=== PATIENT | female | born 1985 | race Caucasian/White ===

== ENCOUNTER 2017-03-01 08:05 | Inpatient (IN) | payer OTHER ==
[2017-03-01 09:33] LABS: BASOPHIL 0.7 % (0-2.0); EOSINOPHIL 1.3 % (0-4.5); MCH 31.1 pg (25.7-33.7); MCHC 33.2 g/dl (32.0-36.0); MEAN CELL VOLUME 93.4 fl (80-96); NEUTROPHILS 68.2 % (42.8-82.8); PLATELET COUNT 165 K/MM3 (134-434); WHITE BLOOD COUNT 13.3 K/mm3 (4.0-10.0)
[2017-03-01 09:46] LABS: INR 0.86 (0.82-1.09); PROTHROMBIN TIME (PATIENT) 9.4 SEC (9.98-11.88)
[2017-03-01 09:48] LABS: ACTIVATED PTT 28.7 SECONDS (26.9-34.4)
[2017-03-01 09:54] LABS: ALBUMIN 2.5 g/dl (3.4-5.0); ALK PHOS 167 U/L (45-117); ANION GAP 11 (8-16); BILIRUBIN,TOTAL 0.3 mg/dL (0.2-1.0); CALCIUM 8.8 mg/dL (8.5-10.1); CO2 22 mmol/L (21-32); CREATININE 0.4 mg/dL (0.55-1.02); GLUCOSE,RANDOM 72 mg/dL (74-106); SGOT/AST 15 U/L (15-37); SGPT/ALT 18 U/L (12-78); TOT PROT 6.4 g/dl (6.4-8.2)
[2017-03-01] MEDS ORDERED: ELECTROLYTE-148 SOLN 500 ML IV ONE ×2 (10:00→10:28)
[2017-03-01] MEDS ORDERED: CITRIC ACID/SODIUM CITRATE 30 ML UNIT-DOSE CUP PO ONE ×2 (11:39)
[2017-03-01 11:45] VITALS: BMI 29.4
[2017-03-01] MEDS ORDERED: ELECTROLYTE-148 SOLN 1,000 ML IV SCH ×2 (11:45→12:15)
[2017-03-01 12:13] LABS: CREATININE 0.4 mg/dL (0.55-1.02); URINE CREATININE 89.8 mg/dL (20-320)
[2017-03-01 13:33] LABS: ARTERIAL BLD GAS O2 SATURATION 10.2 % (90-98.9); ARTERIAL BLOOD GAS HCO3 27.7 meq/L (22-26); ARTERIAL BLOOD GAS PO2 10.5 mmHg (80-100)
[2017-03-01 13:35] LABS: ARTERIAL BLOOD GAS pH 7.27 (7.35-7.45)
[2017-03-01] MEDS ORDERED: IBUPROFEN 800 MG/8 ML IJ IVPB PRN (13:49)
[2017-03-01] MEDS ORDERED: METHYLERGONOVINE MALEATE 0.2 MG/1 ML AMP IM PRN (13:49)
[2017-03-01] MEDS ORDERED: OXYTOCIN 20 UNITS in 0.9% NS 1,000 ML IV SCH (14:00)
--- NOTE | 2017-03-01 14:02 | OP ---
Operative Note - Note: Operative Date: 03/01/17 Pre-Operative Diagnosis: 37 weeks , previous c/sctionx2, Non Reassuring FHR , abnormal dopplers , severe proteinuria Operation: Repeat LFTC/section Findings: 12.53 pm, baby boy, LOP, cord around body, 9/9, WT 4'15" , Ht 17" meconium stained amniotic fluid both tubes & ovaries normal Dr alberto Infection Prevention Practitioner present in the room Surgeon: Cierra Wagner Assistant Business Manager: Ledy Burciaga Anesthesiologist/STREAMING MEDIA SPECIALIST: Gallito Kim Anesthesia: Spinal Specimens Removed: cord segment for cord gas. cord blood. placenta Estimated Blood Loss (mls): 700 Drains, Volume Out (mls): 300 (tawanna color , ulloa out put ) Fluid Volume Replaced (mls): 1,700 (Iv Ancef prior to incision was given ) Operative Report Dictated: Yes
--- NOTE | 2017-03-01 14:17 | PN ---
Delivery - Delivery Section: Repeat, Low Flap Transverse (indication : 37 wks, Non reassuring FHr, , 2previous c/section , abn doppler study) Type of Anesthesia: Spinal EBL (cc): 700 (ulloa out put 300 ml tawanna color ) Delivery, Single - Stages of Labor Date of Delivery: 03/01/17 Time of Delivery: 12:53 Date Placenta Delivered: 03/01/17 Time Placenta Delivered: 12:55 Placenta: Yes: Manual Removal, Uterine Exploration - Condition of Intelligence Officer/Small Kick Press Operator Present: Yes Name: Yani Kinsey Infant Gender: Male Position: Left, OP (cord around body) Total Hours ROM (Hrs/Mins): 2 min mecnium light - 1 Minute Total Score: 9 5 Minutes Total Score: 9 - [place] Feeding Plan Initial Plan: Elected not to breastfeed exclusively throughout hospitalization Remarks - Remarks Remarks: 31 yrs , 37 weeks, previous c/sx2, Non reassuring FHR, abnormal uterine artery & middle cerebra artery doppllers , severe proteinuria , decrease FM Pt was recommended delivery . Gbs neg . PNC at [address] [place] [address]
--- NOTE | 2017-03-01 15:06 | OP ---
DATE OF OPERATION: 03/01/2017 PREOPERATIVE DIAGNOSIS: 37 weeks , previous section x2, nonreassuring heart rate, abnormal umbilical and mid-cerebral artery Dopplers, and severe proteinuria. SURGEON: Cierra Wagner MD FURNITURE SANDER SURGEON: Ledy Burciaga DO ANESTHESIOLOGIST: Gallito Kim MD ANESTHESIA: Spinal. FINDINGS: This is a 31-year-old, 5, para 2-0-2-2, who is 37 weeks gestation, had previous C-sections x2, has a history of decreased movement since February 27, and she is being closely monitored by biophysical profiles and NST, and the monitoring slip keeps changing between category 1 and category 2 and sometimes _ ____ late decelerations also were noted and nonreactive heart tracing. Biophysical profile SD ratio done at the umbilical artery abnormal. Umbilical artery SD ratio is abnormal and middle cerebral artery shows abnormal, and Dr. Regalado, the [facility], recommended delivery. Patient was not in labor. DESCRIPTION OF PROCEDURE: Patient is taken to the operating room table, and spinal anesthesia was given. The abdomen was painted, draped in usual manner. Lees catheter was placed before painting and draping the patient. A Pfannenstiel incision was made through the skin and subcutaneous tissue. Anterior rectus sheath was incised transversely. Bleeding points were clamped and cauterized. The rectus muscle was from the rectus sheath. The parietal peritoneum was opened vertically. A lower flap of the peritoneum was incised transversely. Lower uterine segment was incised transversely. Bleeding points were cauterized, and the baby boy was delivered at 12:53 p.m. Apgars were 9 and 9. Cord around the baby's body was noted. Amniotic fluid was meconium stained, a light color meconium stain. Dr. Kinsey, pc tech, was present in the room. Baby's Apgars were 9 and 9, and baby's weight was 4 pounds 15 ounces. Cord was clamped and cut, and cord blood was collected. Also, the cord segment was sent before that for cord blood gases. Placenta was completely removed with the membranes, and it was sent for pathology examination. Then, the uterine cavity was cleaned completely, and the uterus was closed in 2 layers. First layer was a continuous locking with Biosyn 0 suture. Second layer was closed with continuous Biosyn 0 suture vertical mattress sutures were taken. Bladder peritoneum also was closed with a Biosyn 0 suture. Both tubes and ovaries were normal. Irrigation was done. Sponge, instrument, and needle count was correct, and the closure of the abdomen was done. Parietal peritoneum was closed with a Vicryl 0 suture. Anterior rectus sheath also was closed with a Vicryl 0 suture. Before closing the anterior rectus sheath, bleeding was noted underneath the rectus sheath flap, and it was normal. Then, subcutaneous tissue hemostasis was verified. Subcutaneous tissue was approximated with Biosyn 0 suture. Anterior rectus sheath was closed before that with Vicryl 0 continuous suture. The skin was approximated with jake, and pressure dressing was given. Blood clots were removed from the vagina. Estimated blood loss was 700 mL. Intraoperative fluids were given, 1700 mL, and urine output was 300 mL. She received 1 g of IV Ancef prior to the incision. Burton [id number] MTDD
--- NOTE | 2017-03-01 15:07 | HP ---
Past Medical History - Primary Care Physician PCP:: Cierra Wagner - Admission Chief Complaint: 31 yrs , 37 weeks by sono, 37.2/7 weeks by dates c/o decreased FM, sono done today, FMstrips reviewed by MFM, Dr Ventura. Non reassuring FHR, abnormal doppler flow study, 03/01/17 S:D ratio 3.7>95%tile, middle cerebral artery S:D ratio 3, Amanda 12.75, bpp8/8, Placenta grade 3 recommends delivery. HELLP work up on 02/27/17 WNL, Uric acid 6.0. Pt is also GDM , diet controlled, Severe Proteinuria 02/21/17 24 hr urine protein 938 History of Present Illness: Pnc at [facility] wt gain. she is closely monitored for proteinuria, 7 decrease FM since 02/27 in AM 02/15, in pm 04/1702/27/17 pm FHR tracing changing from cat-1 to cat-2. HELLP work up neg 03/01/17 10/03/16 uric acid 4.4., plt 220, liver enz normal MFM consult, serial growth sono reviewed, & GDM managed by diet. NT screen neg, borderline MS aFP (1:206 ONTD), Repeat AFP 1:366 ONTD Elevated Inhibin level A (98%tile), on modified sequential screen. 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 12/01/2010 ) ...Induced : 0 ...Multiple Gestation: 0 ...LMP: 06/13/16 ... Weeks Gestation by Dates: 37.2 ...EDC by Dates: 03/20/17 ...EDC by Sono: 03/22/17 (37 weeks by sono ) Heme/Onc: No: Anemia Infectious Disease: No: AIDS, HIV, STD's, Tuberculosis Psych: No: Anxiety Endocrine: Yes: Other (GDM diet controlled) - Past Surgical History Past Surgical History: Yes: (07/17/2007, 11/11/2010) Hx Myomectomy: No Hx Transabdominal Cerclage: No - Smoking History Smoking history: Never smoked Have you smoked in the past 12 months: No - Alcohol/Substance Use Hx Alcohol Use: No History of Substance Use: reports: None - Social History History of Recent Travel: No Home Medications - Allergies Allergies/Adverse Reactions: Allergies Allergy/AdvReac Type Severity Reaction Status Date / Time No Known Allergies Allergy Verified 03/01/17 11:33 - Home Medications Home Medications: Ambulatory Orders Pnv95/Ferrous Fumarate/FA [ Vitamin Tablet] 1 each PO DAILY 03/01/17 Physical Exam - Maternity Vital Signs: Vital Signs Temperature 98.7 F 03/01/17 11:33 Pulse Rate 78 03/01/17 11:33 Respiratory Rate 20 03/01/17 11:33 Blood Pressure 135/84 03/01/17 11:33 O2 Sat by Pulse Oximetry (%) Constitutional: Yes: Well Nourished, No Distress, Calm, Obese (161 lbs) Eyes: Yes: WNL HENT: Yes: WNL, Normocephalic Neck: Yes: WNL Cardiovascular: Yes: WNL, Regular Rate and Rhythm Lungs: Clear to auscultation Breast(s): Yes: WNL - Abdominal Exam/OB Fundal Height: 38 Number of Fetuses: Single Presentation: Vertex Contractions: No Monitor Mode: External Heart Rate (range): 140 Heart Rate Location: [facility] Category: I (sometimes cat2 m due to low btb tracing changing bet cat1 & cat2) Accelerations: Uniform (aceel max up to 10 bpm) Decelerations: Late (occasional subtle late decel is noted) - Vaginal Exam/OB Vaginal Bleediing: No Speculum Exam: No Dilatation (cm): close Effacement (%): unefface Amniotic Membrane Status: Intact Presentation: Vertex/Position Station: -3 - Physical Exam Musculoskeletal: Yes: WNL Extremities: Yes: WNL. No: Calf Tenderness Edema: Yes (puffiness of face) Edema: LLE: 1+, RLE: 1+ Integumentary: Yes: Incision (old pfannensteil scar) Deep Tendon Reflex Grade: Normal +2 ...Motor Strength: WNL Psychiatric: Yes: WNL, Alert, Oriented - Labs Lab Results: CBC, BMP 03/01/17 09:03 03/01/17 09:03 Laboratory Tests 11/29/10 12/04/10 03/01/17 13:50 08:00 08:34 WBC RBC Hgb Hct Plt Count Lymphocytes # 26.7 D Absolute Monocytes 5.7 Basophils # 0.5 Neutrophils % Lymphocytes % Monocytes % Eosinophils % Basophils % Eosinophil Count 3.9 PTT (Actin FS) APC - PTT Baseline 26.2 Sodium Potassium Chloride Carbon Dioxide BUN Creatinine Creat Clearance w eGFR Random Glucose Uric Acid Calcium Total Bilirubin AST ALT Urine Protein 123 Urine Creatinine 89.8 Ur Total Protein 24 Hr 1353 H Blood Type 03/01/17 03/01/17 03/01/17 09:03 09:03 09:03 WBC 13.3 H RBC 4.26 Hgb 13.2 Hct 39.8 Plt Count 165 Lymphocytes # Absolute Monocytes Basophils # Neutrophils % 68.2 Lymphocytes % 23.8 Monocytes % 6.0 Eosinophils % 1.3 Basophils % 0.7 Eosinophil Count PTT (Actin FS) 28.7 APC - PTT Baseline Sodium 138 Potassium 4.2 Chloride 105 Carbon Dioxide 22 BUN 9 Creatinine 0.4 L Creat Clearance w eGFR > 60 Random Glucose 72 L Uric Acid Calcium 8.8 Total Bilirubin 0.3 AST 15 ALT 18 Urine Protein Urine Creatinine Ur Total Protein 24 Hr Blood Type 03/01/17 03/01/17 09:03 12:19 WBC RBC Hgb Hct Plt Count Lymphocytes # Absolute Monocytes Basophils # Neutrophils % Lymphocytes % Monocytes % Eosinophils % Basophils % Eosinophil Count PTT (Actin FS) APC - PTT Baseline Sodium Potassium Chloride Carbon Dioxide BUN Creatinine Creat Clearance w eGFR Random Glucose Uric Acid 5.1 Calcium Total Bilirubin AST ALT Urine Protein Urine Creatinine Ur Total Protein 24 Hr Blood Type O POSITIVE Hemorrhage Risk Assessment - Risk Factors Medium Risk Factors: Yes: Prior , uterine surgery,or multiple laparotomies Risk Score: 1 Risk Level: Medium Risk Problem List - Problems (1) with 37 weeks completed gestation Code(s): Z3A.37 - 37 WEEKS GESTATION OF (2) Non-reassuring heart rate or rhythm affecting management of fetus Code(s): TBC8400 - (3) Previous section complicating Code(s): O34.219 - MATERNAL CARE FOR UNSP TYPE SCAR FROM PREVIOUS DEL (4) Proteinuria affecting in third trimester Code(s): O12.13 - GESTATIONAL PROTEINURIA, THIRD TRIMESTER (5) Gestational diabetes, diet controlled Code(s): O24.410 - GESTATIONAL DIABETES MELLITUS IN , DIET CONTROLLED Qualifiers: Trimester: third trimester Qualified Code(s): O24.410 - Gestational diabetes mellitus in , diet controlled Assessment/Plan 31 years , 37 weeks, previous c/s x2, Decrease FM Non reassuring FHR, ABN uterine doppler flow & middle cerebral artery flow, GDM, diet controlled, Proteinuria severe (normal HELLP) work up Plan, MFM consult obtained, recommend delivery today
[2017-03-01] MEDS ORDERED: IBUPROFEN 600 MG TABLET (FP) PO PRN (15:21)
[2017-03-01] MEDS ORDERED: morphine SULFATE/Preservative Free 0.5 MG/ML (1cc Syringe) SPIN ONE (15:21)
[2017-03-01] MEDS ORDERED: ACETAMINOPHEN 325 MG TABLET (FP) PO PRN (15:21)
[2017-03-01] MEDS ORDERED: ONDANSETRON 4 MG/2 ML VIAL IVPB PRN (15:21)
[2017-03-01] MEDS: CEFAZOLIN 1 GM/D5W 50 ML IVPB SCH (18:02)
[2017-03-01] MEDS: ACETAMINOPHEN 325 MG TABLET (FP) PO PRN (21:52)
[2017-03-01] MEDS: IBUPROFEN 600 MG TABLET (FP) PO PRN (21:53)
[2017-03-02] MEDS: CEFAZOLIN 1 GM/D5W 50 ML IVPB SCH ×2 (02:17→10:00)
[2017-03-02] MEDS: ACETAMINOPHEN 325 MG TABLET (FP) PO PRN ×4 (06:21→19:37)
[2017-03-02] MEDS: IBUPROFEN 600 MG TABLET (FP) PO PRN ×4 (06:21→19:35)
[2017-03-02 07:58] LABS: BASOPHIL 0.7 % (0-2.0); EOSINOPHIL 1.9 % (0-4.5); MCH 31.4 pg (25.7-33.7); MCHC 33.4 g/dl (32.0-36.0); MEAN CELL VOLUME 94.1 fl (80-96); NEUTROPHILS 74.7 % (42.8-82.8); PLATELET COUNT 133 K/MM3 (134-434)
--- NOTE | 2017-03-02 08:00 | PN ---
Progress Note (short form) - Note Progress Note: pod 1 ,s/p c/s GDM diet controlled has mild low abdominal pain, no excess vaginal bleeding CBC, BMP 03/01/17 09:03 Last Vital Signs Temp Pulse Resp BP Pulse Ox 98.2 F 68 18 137/87 100 03/02/17 06:00 03/02/17 06:00 03/02/17 06:00 03/02/17 06:00 03/01/17 14:30 abdomen soft, no distension, no cva incision dry, clean no calf tenderness lochia mild plan ambulate, cbc . advance diet
[2017-03-02] MEDS ORDERED: ENOXAPARIN NA (PORCINE) 40 MG/0.4 ML DISP.SYRIN SQ SCH (10:00)
[2017-03-02] MEDS: SIMETHICONE 80 MG TAB.CHEW (FP) PO PRN ×4 (10:09→23:57)
[2017-03-02] MEDS: PRENATAL VITAMINS W/ FOLIC ACID TABLET (FP) PO SCH (10:11)
[2017-03-02] MEDS: ENOXAPARIN NA (PORCINE) 40 MG/0.4 ML DISP.SYRIN SQ SCH (10:11)
[2017-03-02] MEDS ORDERED: CEFAZOLIN 1 GM/D5W 50 ML IVPB SCH (10:15)
--- NOTE | 2017-03-02 11:54 | PN ---
Progress Note (short form) - Note Progress Note: Anesthesia postop note. POD#1. S/p Repeat under spinal. Pat seen and examined. VSS. No apparent post anesthesia complications. Signed off.
[2017-03-02] MEDS ORDERED: BISACODYL 10 MG SUPP.RECT RC PRN (13:50)
[2017-03-02] MEDS: FERROUS SO4 325 MG TABLET (FP) PO SCH (21:20)
[2017-03-02] MEDS: SENNOSIDES/DOCUSATE COMBO (SENNA PLUS) TABLET (UD) PO PRN (21:20)
[2017-03-02] MEDS: oxyCODONE HCL 5 MG TABLET PO PRN (23:59)
[2017-03-03] MEDS: SIMETHICONE 80 MG TAB.CHEW (FP) PO PRN ×4 (04:17→20:48)
[2017-03-03] MEDS: ACETAMINOPHEN 325 MG TABLET (FP) PO PRN ×3 (04:17→17:16)
[2017-03-03] MEDS: oxyCODONE HCL 5 MG TABLET PO PRN ×4 (04:18→20:48)
[2017-03-03] MEDS: ENOXAPARIN NA (PORCINE) 40 MG/0.4 ML DISP.SYRIN SQ SCH (09:12)
[2017-03-03] MEDS: PRENATAL VITAMINS W/ FOLIC ACID TABLET (FP) PO SCH (09:13)
[2017-03-03] MEDS: FERROUS SO4 325 MG TABLET (FP) PO SCH ×2 (09:13→21:50)
--- NOTE | 2017-03-03 09:54 | PN ---
Post Progress Note - Subjective Subjective: 31 yo Para 3 status post repeat , seen and evaluated. She c/o incision pain. Doing well Post Day: 2 Type of Delivery: Repeat C/S Vital Signs: Vital Signs Temperature 98.6 F 03/02/17 22:00 Pulse Rate 73 03/02/17 22:00 Respiratory Rate 18 03/02/17 22:00 Blood Pressure 126/71 03/02/17 22:00 O2 Sat by Pulse Oximetry (%) 100 03/01/17 14:30 Breast Exam: Yes: Soft Uterus: Yes: Fundus Firm Incision: Yes: [place] intact Abdomen/GI: Yes: Abdomen soft, Tolerating PO Lochia: Yes: Rubra Lochia, amount: Small Extremities: Yes: Calves non-tender Perineum: Yes: Intact Activity: Ambulating - Labs Labs: CBC WBC 13.0 K/mm3 (4.0-10.0) H 03/02/17 07:09 RBC 3.90 M/mm3 (3.60-5.2) 03/02/17 07:09 Hgb 12.3 GM/dL (10.7-15.3) 03/02/17 07:09 Hct 36.7 % (32.4-45.2) 03/02/17 07:09 MCV 94.1 fl (80-96) 03/02/17 07:09 MCH 31.4 pg (25.7-33.7) 03/02/17 07:09 MCHC 33.4 g/dl (32.0-36.0) 03/02/17 07:09 RDW 14.0 % (11.6-15.6) 03/02/17 07:09 Plt Count 133 K/MM3 (134-434) L 03/02/17 07:09 MPV 10.0 fl (7.5-11.1) 03/02/17 07:09 Neutrophils % 74.7 % (42.8-82.8) 03/02/17 07:09 Lymphocytes % 18.0 % (8-40) D 03/02/17 07:09 Monocytes % 4.7 % (3.8-10.2) 03/02/17 07:09 Eosinophils % 1.9 % (0-4.5) 03/02/17 07:09 Basophils % 0.7 % (0-2.0) 03/02/17 07:09 Problem List - Problems (1) Status post repeat low transverse section Code(s): Z98.891 - HISTORY OF UTERINE SCAR FROM PREVIOUS SURGERY Assessment/Plan Status post Stable Continue routine Post op care
[2017-03-03] MEDS: IBUPROFEN 600 MG TABLET (FP) PO PRN ×3 (11:07→20:47)
[2017-03-03] MEDS: SENNOSIDES/DOCUSATE COMBO (SENNA PLUS) TABLET (UD) PO PRN ×2 (11:08→20:49)
[2017-03-04] MEDS: IBUPROFEN 600 MG TABLET (FP) PO PRN ×2 (00:44→15:33)
[2017-03-04] MEDS: oxyCODONE HCL 5 MG TABLET PO PRN ×2 (00:44→08:02)
[2017-03-04] MEDS: ACETAMINOPHEN 325 MG TABLET (FP) PO PRN ×2 (08:01→15:32)
[2017-03-04] MEDS: SIMETHICONE 80 MG TAB.CHEW (FP) PO PRN ×2 (08:03→15:34)
[2017-03-04] MEDS: ENOXAPARIN NA (PORCINE) 40 MG/0.4 ML DISP.SYRIN SQ SCH (09:34)
[2017-03-04] MEDS: FERROUS SO4 325 MG TABLET (FP) PO SCH (09:34)
[2017-03-04] MEDS: PRENATAL VITAMINS W/ FOLIC ACID TABLET (FP) PO SCH (09:34)
[2017-03-04 11:49] LABS: BASOPHIL 0.8 % (0-2.0); EOSINOPHIL 2.9 % (0-4.5); MCH 31.7 pg (25.7-33.7); MCHC 33.3 g/dl (32.0-36.0); MEAN CELL VOLUME 95.3 fl (80-96); NEUTROPHILS 67.8 % (42.8-82.8); PLATELET COUNT 163 K/MM3 (134-434); RDW 14.6 % (11.6-15.6); WHITE BLOOD COUNT 12.1 K/mm3 (4.0-10.0)
[2017-03-04 17:01] LABS: URIC ACID 4.9 mg/dL (2.6-7.2)
[2017-03-04 19:44] LABS: URINE APPEARANCE CLOUDY; URINE BILIRUBIN NEGATIVE (NEGATIVE); URINE BLOOD 3+ (NEGATIVE); URINE COLOR RED; URINE GLUCOSE (UA) NEGATIVE (NEGATIVE); URINE KETONE NEGATIVE (NEGATIVE); URINE LEUK ESTERASE TRACE (NEGATIVE); URINE NITRITE NEGATIVE (NEGATIVE); URINE UROBILINOGEN NEGATIVE mg/dL (0.2-1.0)
[2017-03-04 19:45] LABS: URINE PROTEIN 2+ (NEGATIVE)
[2017-03-04 19:49] LABS: URINE MUCUS RARE; URINE RBC 2585 /hpf (0-3); URINE WBC 121 /hpf (3-5)
[2017-03-04] MEDS ORDERED: diphenhydrAMINE HCL 25 MG CAPSULE (FP) PO ONE (21:17)
--- NOTE | 2017-03-04 21:33 | PN ---
Post Progress Note - Subjective Subjective: 31 yo status post repeat , seen and evaluated. Doing well. Post Day: 3 Type of Delivery: Primary C/S Vital Signs: Vital Signs Temperature 99.1 F 03/04/17 18:12 Pulse Rate 71 03/04/17 18:12 Respiratory Rate 20 03/04/17 18:12 Blood Pressure 140/78 03/04/17 18:12 O2 Sat by Pulse Oximetry (%) 100 03/01/17 14:30 Breast Exam: Yes: Soft Uterus: Yes: Fundus Firm Incision: Yes: [place] intact Abdomen/GI: Yes: Abdomen soft, Tolerating PO Lochia: Yes: Rubra Lochia, amount: Small Extremities: Yes: Calves non-tender Perineum: Yes: Intact Activity: Ambulating - Labs Labs: CBC WBC 12.1 K/mm3 (4.0-10.0) H 03/04/17 06:00 RBC 3.44 M/mm3 (3.60-5.2) L 03/04/17 06:00 Hgb 10.9 GM/dL (10.7-15.3) D 03/04/17 06:00 Hct 32.8 % (32.4-45.2) 03/04/17 06:00 MCV 95.3 fl (80-96) 03/04/17 06:00 MCH 31.7 pg (25.7-33.7) 03/04/17 06:00 MCHC 33.3 g/dl (32.0-36.0) 03/04/17 06:00 RDW 14.6 % (11.6-15.6) 03/04/17 06:00 Plt Count 163 K/MM3 (134-434) D 03/04/17 06:00 MPV 10.0 fl (7.5-11.1) 03/04/17 06:00 Neutrophils % 67.8 % (42.8-82.8) 03/04/17 06:00 Lymphocytes % 22.1 % (8-40) D 03/04/17 06:00 Monocytes % 6.4 % (3.8-10.2) 03/04/17 06:00 Eosinophils % 2.9 % (0-4.5) 03/04/17 06:00 Basophils % 0.8 % (0-2.0) 03/04/17 06:00 Retic Count 3.01 % (0.5-1.5) H 03/04/17 16:00 Problem List - Problems (1) Status post repeat low transverse section Code(s): Z98.891 - HISTORY OF UTERINE SCAR FROM PREVIOUS SURGERY Assessment/Plan Status post Stable Continue routine Post op care D/C Home tomorrow
[2017-03-05] MEDS: SIMETHICONE 80 MG TAB.CHEW (FP) PO PRN ×2 (00:09→09:23)
[2017-03-05] MEDS: SENNOSIDES/DOCUSATE COMBO (SENNA PLUS) TABLET (UD) PO PRN (00:11)
[2017-03-05] MEDS: FERROUS SO4 325 MG TABLET (FP) PO SCH ×2 (00:11→09:23)
[2017-03-05] MEDS: ACETAMINOPHEN 325 MG TABLET (FP) PO PRN ×3 (00:11→13:46)
[2017-03-05] MEDS: IBUPROFEN 600 MG TABLET (FP) PO PRN (00:13)
--- NOTE | 2017-03-05 07:51 | DS ---
Physical Exam-MARKETING MANAGER Vital Signs: Vital Signs Temperature 98.9 F 03/04/17 22:00 Pulse Rate 66 03/05/17 05:55 Respiratory Rate 18 03/05/17 05:55 Blood Pressure 135/79 03/05/17 05:55 O2 Sat by Pulse Oximetry (%) 100 03/01/17 14:30 Constitutional: Yes: Well Nourished Eyes: Yes: Conjunctiva Clear HENT: Yes: Atraumatic Neck: Yes: Supple Cardiovascular: Yes: Regular Rate and Rhythm Respiratory: Yes: Regular, CTA Bilaterally Gastrointestinal: Yes: Normal Bowel Sounds ...Rectal Exam: Yes: WNL Pelvis: Yes: WNL External Genitalia: Yes: Normal Wound/Incision: Yes: Well Approximated, Jake Intact Neurological: Yes: Alert, Oriented ...Motor Strength: WNL Psychiatric: Yes: Alert, Oriented Labs: CBC, BMP 03/04/17 06:00 03/01/17 09:03 Delivery - Delivery Section: Repeat, Low Flap Transverse (indication : 37 wks, Non reassuring FHr, , 2previous c/section , abn doppler study) Type of Anesthesia: Spinal Episiotomy/Laceration: None EBL (cc): 700 (ulloa out put 300 ml tawanna color ) Delivery, Single - Stages of Labor Date of Delivery: 03/01/17 Time of Delivery: 12:53 Time Placenta Delivered: 12:55 Placenta: Yes: Manual Removal, Uterine Exploration - Condition of Infant Checkroom Attendant/Buffing Machine Tender Present: Yes Name: Yani Kinsey Infant Gender: Male Weight: 4 lb 15 oz Position: Left, OP (cord around body) Total Hours ROM (Hrs/Mins): 2 min mecnium light - 1 Minute Total Score: 9 5 Minutes Total Score: 9 - [place] Feeding Plan Initial Plan: Elected not to breastfeed exclusively throughout hospitalization Discharge Summary Reason For Visit: Current Active Problems Gestational diabetes, diet controlled (Acute) Status post repeat low transverse section (Acute) Procedures: Principal: Repeat Low transverse Hospital Course: Routine Post op care Condition: Good - Instructions Diet, Activity, Other Instructions: Regular diet Wound care F/U in clinic for jake removal Disposition: HOME - Home Medications Comprehensive Discharge Medication List: Ambulatory Orders Pnv95/Ferrous Fumarate/FA [ Vitamin Tablet] 1 each PO DAILY 03/01/17
[2017-03-05 08:01] VITALS: BP 129/75; PULSE 72; TEMP 98.7
[2017-03-05] MEDS: ENOXAPARIN NA (PORCINE) 40 MG/0.4 ML DISP.SYRIN SQ SCH (09:23)
[2017-03-05] MEDS: PRENATAL VITAMINS W/ FOLIC ACID TABLET (FP) PO SCH (09:24)
[2017-03-05] MEDS: oxyCODONE HCL 5 MG TABLET PO PRN ×2 (09:25→13:45)
--- NOTE | 2017-03-05 15:27 | PATH ---
Surgical Pathology Report Patient Name: [facility]. Rec. #: [id number] /Age/Gender: 1985 (Age: 31) / F Account: [id number] Location: [facility] OBS/TRUCK DRIVER RUBBISH COLLECTOR Taken: 03/01/2017 Received: 03/02/2017 Reported: 03/05/2017 Physicians: Cierra Wagner M.D. Specimen(s) Received PLACENTA Clinical History , 37.0 wks, non-reassuring FHR, abnormal umbilical artery doppler study, decreased movements gestational diabetes, celiac proteinuria, uterine fibroids, cervical polyp Repeat Final Diagnosis PLACENTA, DELIVERY: THIRD TRIMESTER PLACENTA WITH INFARCT, ADDITIONAL INTERVILLOUS AND SUBCHORIONIC FIBRIN DEPOSITION, 3 VESSEL UMBILICAL CORD, AND UNREMARKABLE PLACENTAL MEMBRANES. Electronically Signed Allan Christopher M.D. Gross Description The specimen is received fresh labeled placenta and is a 524 gram, 18.0 x 15.0 x 2.9 cm. placenta with attached membranes and umbilical cord. The attached membranes are sawant green meconium stained and opaque and insert marginally. The umbilical cord measures 20 cm. in length and averages 0.8 cm. in diameter. The cord inserts eccentrically, 3.0 cm. to the nearest margin. No true knots or strictures are identified. Cut surface of the umbilical cord reveals 3 vessels. The surface is cm-green meconium stained with fibrin deposition and appropriate caliber vessels. The maternal surface is red-brown and intact.Sectioning reveals red-brown, spongy parenchyma with focal 1.5 cm sawant lesion. No lesions are identified. Wet Roller sections are submitted in three cassettes as follows: 1- membrane rolls and umbilical cord; 2 lesion, 3- full thickness sections of placenta. AF/03/02/2017 final/03/02/2017
== END 2017-03-05 14:50 | disposition home or self-care (01) | DRG 540 ==
LOC: JDEL 08:05 → JLDR 11:20 → J3W 16:03
PROVIDERS: ADMIT Obstetrics & Gynecology; ATTEND Obstetrics & Gynecology
PROC: 10D00Z1 Extraction of Products of Conception, Low, Open Approach (ICD-10-PCS; principal; 2017-03-01)
DX: O34.211 Maternal care for low transverse scar from previous cesarean delivery (principal); N85.8 Other specified noninflammatory disorders of uterus; Z3A.37 37 weeks gestation of pregnancy; O76 Abnormality in fetal heart rate and rhythm complicating labor and delivery; O12.13 Gestational proteinuria, third trimester; O24.410 Gestational diabetes mellitus in pregnancy, diet controlled; Z37.0 Single live birth
CPT/HCPCS: 36415; 36600; 80053; 81003; 81015; 82575; 82803; 82977; 83010; 84156; 84450; 84460; 84550; 85025; 85044; 85610; 85730; 86593; 86850; 86900; 86901; 88307-TC

== ENCOUNTER 2017-03-10 14:11 | Emergency (ER) | payer OTHER ==
[2017-03-10 14:19] VITALS: BP 119/64; PULSE 91; TEMP 98.3; BMI 27.4
--- NOTE | 2017-03-10 15:24 | PDOC ---
Attending Attestation - HPI HPI: 03/10/17 15:52 Patient is a 31 yo F with PMHx of who presents to the ED with irritation to lower abdomen s/p C section from jake. Patient reports C section on 03/01 with no complications. Patient denies any drainage to the area, fowl smelling discharge, fevers or chills. Patient still reports lochia however denies any dysuria, frequency, urgency. - Physicial Exam PE: 03/10/17 15:57 GENERAL: Well developed, well nourished. Awake and alert. No acute distress. HEENT: Normocephalic, atraumatic. PERRLA, EOMI. No conjunctival pallor. Sclera are non- icteric. Moist mucous membranes. Oropharynx is clear. NECK: Supple. Full ROM. No JVD. Carotid pulses 2+ and symmetric, without bruits. No thyromegaly. No lymphadenopathy. CARDIOVASCULAR: Regular rate and rhythm. No murmurs, rubs, or gallops. Distal pulses are 2+ and symmetric. PULMONARY: No evidence of respiratory distress. Lungs clear to auscultation bilaterally. No wheezing, rales or rhonchi. ABDOMINAL: Soft. Non-tender. Non-distended. No rebound or guarding. No organomegaly. Normoactive bowel sounds. MUSCULOSKELETAL Normal range of motion at all joints. No bony deformities or tenderness. No CVA tenderness. EXTREMITIES: No cyanosis. No clubbing. No edema. No calf tenderness. SKIN: +[address] at low transverse incision at C section site. Warm and dry. No drainage. No fluctuance. No induration. Normal capillary refill. No rashes. No jaundice. NEUROLOGICAL: Alert, awake, appropriate. Cranial nerves 2-12 intact. No deficits to light touch and temperature in face, upper extremities and lower extremities. No motor deficits in the in face, upper extremities and lower extremities. Normoreflexic in the upper and lower extremities. Normal speech. Toes are downgoing bilaterally. Gait is normal without ataxia. PSYCHIATRIC: Cooperative. Good eye contact. Appropriate mood and affect. - Medical Decision Making 03/10/17 15:27 Dr. Wagner paged via phone answering service. Awaiting call back. [phone] 03/10/17 15:[address] Lisa Rogers urban design consultant. 03/10/17 15:34 Dr. Rogers was Family medicine urban design consultant Repaging OB physician urban design consultant. 03/10/17 15:[address] Montes overhead. Awaiting call. 03/10/17 15:[address] Montes's answering service. Awaiting call back. 03/10/17 15:53 Dr. Montes returned the page and the patients case was discussed. Documentation prepared by Heike Wallace, acting as medical oncology physician for Marylu Vallejo DO <Heike Wallace - Last Filed: 03/10/17 15:53> - Resident Resident Name: Armida Walker - ED Attending Attestation I have performed the following: I have examined & evaluated the patient, The case was reviewed & discussed with the resident, I agree w/resident's findings & plan, Exceptions are as noted - Medical Decision Making 03/10/17 15:24 I, Dr. Marylu Vallejo, , attest that this document has been prepared under my direction and personally reviewed by me in its entirety. I further attest, that it accurately reflects all work, treatment, procedures and medical decision -making performed by me. 03/10/17 15:37 a/p: 31yo female with incisional itching and irritation from jake from c- section on 03/01 -will discuss with GEOSPATIAL IMAGERY INTELLIGENCE ANALYST for staple removal today -no surrounding erythema, no drainage from wound. no f/c. No wound infection visualized. no warmth. no induration or fluctuance, no drainage expressed from wound. -pt with appt for staple removal and post op visit on sunday, states itching from jake today. 03/10/17 16:03 case discussed with ob urban design consultant, ok to remove sutures and to d/c patient to follow up with her automobile rental agent as scheduled on sunday <Marylu Vallejo - Last Filed: 03/10/17 16:23>
[2017-03-10] MEDS ORDERED: ACETAMINOPHEN 325 MG TABLET (FP) PO ONE (16:12)
[2017-03-10] MEDS ORDERED: ACETAMINOPHEN 325 MG TABLET (FP) ONE (16:15)
--- NOTE | 2017-03-10 16:36 | PDOC ---
History of Present Illness - General Chief Complaint: Pain Stated Complaint: PAIN Time Seen by Provider: 03/10/17 15:02 History Source: Patient Exam Limitations: No Limitations - History of Present Illness Initial Comments: 31yo F with no significant PMH presenting c/o pain and itching at incision site , s/p on 03/01/17. Pt has had 2 other c-sections (07/17/2007 and 2010) and did not have similar symptoms previously. Pt takes Tylenol pain. Pt is . Pt denies fever, chest pain, SOB. Obgyn: Dr. Mie 03/10/17 16:36 Past History - Past Medical History Allergies/Adverse Reactions: Allergies Allergy/AdvReac Type Severity Reaction Status Date / Time No Known Allergies Allergy Verified 03/10/17 14:17 Home Medications: Ambulatory Orders Acetaminophen [Tylenol .Regular Strength -] 500 mg PO Q4H PRN #30 tablet Ferrous Sulfate [Feosol] 325 mg PO BID #60 tab 03/05/17 Vitamins (Sjr) - 1 tab PO DAILY tablet 03/05/17 Asthma: No Cancer: No Cardiac Disorders: No Diabetes: Yes (GESTATIONAL) HTN: No Seizures: No Thyroid Disease: No - Psycho/Social/Smoking Cessation Hx Anxiety: No Suicidal Ideation: No Smoking History: Never smoked Have you smoked in the past 12 months: No Information on smoking cessation initiated: No Hx Alcohol Use: No Drug/Substance Use Hx: No Substance Use Type: None Hx Substance Use Treatment: No Review of Systems - Review of Systems Able to Perform ROS?: Yes Is the patient limited Fijian proficient: No Constitutional: No: Chills, Diaphoresis, Fever HEENTM: No: Recent change in vision, Ear Pain, Nose Pain, Throat Pain Respiratory: No: Cough, Orthopnea, Shortness of Breath Cardiac (ROS): No: Chest Pain, Edema, Irregular Heart Rate, Palpitations ABD/GI: No: Abdominal Distended, Constipated, Diarrhea, Nausea, Vomiting : Yes: Discharge (still having some bloody discharge). No: Dysuria, Frequency , Flank Pain, Urgency Musculoskeletal: No: Joint Pain, Muscle Pain Integumentary: No: Dryness, Rash Neurological: No: Numbness, Paresthesia, Weakness *Physical Exam - Vital Signs Last Vital Signs Temp Pulse Resp BP Pulse Ox 98.3 F 91 H 18 119/64 100 03/10/17 14:17 03/10/17 14:17 03/10/17 14:17 03/10/17 14:17 03/10/17 14:17 - Physical Exam General Appearance: Yes: Nourished, Appropriately Dressed. No: Apparent Distress HEENT: positive: EOMI, Normal Voice, Other (moist mucous membranes). negative: Pale Conjunctivae, Scleral Icterus (R), Scleral Icterus (L) Neck: positive: Trachea midline, Supple Respiratory/Chest: positive: Lungs Clear, Normal Breath Sounds. negative: Respiratory Distress, Accessory Muscle Use Cardiovascular: positive: Regular Rhythm, Regular Rate, S1, S2. negative: Murmur Gastrointestinal/Abdominal: positive: Soft. negative: Tender, Distended, Guarding, Rebound Extremity: positive: Normal Range of Motion. negative: Swelling, Erythema Integumentary: positive: Other (low transverse incision with 23 jake clean, dry, intact. Slight erythema near where some of the jake enter the skin.) Neurologic: positive: Fully Oriented, Alert, Normal Mood/Affect ED Treatment Course - Medications Given in the ED: ED Medications Discontinued Medications Generic Name Dose Route Start Last Admin Trade Name Freq PRN Reason Stop Dose Admin Acetaminophen 650 mg 03/10/17 16:12 03/10/17 16:17 Tylenol - PO 03/10/17 16:13 650 mg ONCE ONE Administration Medical Decision Making - Medical Decision Making 31yo F with no significant PMH presenting c/o itching and pain at incision site, post-op Day #9. Slight erythema noted near where some of the jake enter the skin. Incision is clean, dry and intact. Jake removed, per Dr. Montes (On-call Obgyn). Tylenol 650mg PO given for pain. 03/10/17 16:58 *DC/Admit/Observation/Transfer Diagnosis at time of Disposition: Non-healing surgical wound, Pain at surgical incision, Status post repeat low transverse section - Discharge Dispostion Disposition: HOME Admit: No - Referrals Referrals: Maximino Ramos MD [Primary Care Provider] -
== END 2017-03-10 16:54 | disposition home or self-care (01) ==
LOC: JER 14:11
DX: O90.89 Other complications of the puerperium, not elsewhere classified (principal); T81.89XA Other complications of procedures, not elsewhere classified, initial encounter
CPT/HCPCS: 99281-25